=== PATIENT | male | born 1995 | race Caucasian/White ===

== ENCOUNTER 2019-08-10 16:52 | Emergency (ER) | payer OTHER ==
[2019-08-10 17:04] VITALS: BP 137/81; PULSE 68; TEMP 97.1; BMI 26.3
--- NOTE | 2019-08-10 17:05 | PDOC ---
Rapid Medical Evaluation Chief Complaint: Eye Problem Time Seen by Provider: 08/10/19 17:01 Medical Evaluation: Allergies Allergy/AdvReac Type Severity Reaction Status Date / Time No Known Allergies Allergy Verified 08/10/19 17:01 08/10/19 17:03 This patient had brief medical evaluation in triage cc: injury to left eye HPI: Patient reports being hit by a piece of car parts while fixing it. Denies blurred vision or pain. States only feels swelling PE: HEENT: + swelling and bruising of left eye, PERRLA unlabored breathing Orders: facial bones This patient will proceed to main ed for further evaluation Discharge Disposition - Diagnosis Eye injury - Referrals - Patient Instructions - Post Discharge Activity
--- NOTE | 2019-08-10 18:41 | PDOC ---
History of Present Illness - General Chief Complaint: Eye Problem Stated Complaint: EYE INJURY Time Seen by Provider: 08/10/19 17:01 History Source: Patient - History of Present Illness Timing/Duration: other (today) Past History - Past Medical History Allergies/Adverse Reactions: Allergies Allergy/AdvReac Type Severity Reaction Status Date / Time No Known Allergies Allergy Verified 08/10/19 17:01 - Psycho Social/Smoking Cessation Hx Smoking History: Never smoked Information on smoking cessation initiated: No Hx Alcohol Use: No Drug/Substance Use Hx: No Review of Systems - Review of Systems HEENTM: Yes: Eye Pain. No: Blurred Vision, Tearing *Physical Exam - Vital Signs Last Vital Signs Temp Pulse Resp BP Pulse Ox 97.1 F L 68 16 137/81 98 08/10/19 16:59 08/10/19 16:59 08/10/19 16:59 08/10/19 16:59 08/10/19 16:59 - Physical Exam General Appearance: Yes: Appropriately Dressed. No: Apparent Distress HEENT: positive: Normal Voice, Other (L periorbital ecchymosis, no crepitus or step offs, conjunctiva clear, EOMI) Medical Decision Making - Medical Decision Making 08/10/19 18:46 23 yo M, no sig hx, hit face against metal while working under his car at work today. Has pain and swelling to left periorbital area but denies pain inside eye and no photophobia, FB sensation, tearing or visual changes. Denies LOC headache nausea or vomiting see exam L periorbital contusion No e/o serious eye injury Orbital XR neg for fx -Dc to apply ice, OTC meds for pain -To return as needed Discharge - Discharge Information Problems reviewed: Yes Clinical Impression/Diagnosis: Eye injury Qualifiers: Encounter type: initial encounter Laterality: left Qualified Code(s): S05.92XA - Unspecified injury of left eye and orbit, initial encounter Periorbital contusion of left eye Qualifiers: Encounter type: initial encounter Qualified Code(s): S05.12XA - Contusion of eyeball and orbital tissues, left eye, initial encounter Condition: Good Disposition: HOME - Follow up/Referral Referrals: Mark Chavarria MD [Primary Care Provider] - - Patient Discharge Instructions Patient Printed Discharge Instructions: Eye Contusion Additional Instructions: Apply ice frequently and take Motrin for pain Return to ER for worsening of symptoms - Post Discharge Activity
== END 2019-08-10 18:48 | disposition home or self-care (01) ==
LOC: JERFT 16:52 → JER 16:52
DX: S05.12XA Contusion of eyeball and orbital tissues, left eye, initial encounter (principal); W22.8XXA Striking against or struck by other objects, initial encounter; Y93.89 Activity, other specified; Y92.89 Other specified places as the place of occurrence of the external cause; Y99.8 Other external cause status
CPT/HCPCS: 70200-TC-FY; 99283-25

== ENCOUNTER 2020-05-20 19:35 | Emergency (ER) | payer OTHER ==
[2020-05-20 19:53] VITALS: BP 115/63; PULSE 64; TEMP 97; BMI 25.7
== END 2020-05-20 20:47 | disposition home or self-care (01) ==
LOC: JER 19:35 → JERFT 19:35
DX: R07.82 Intercostal pain (principal)
CPT/HCPCS: 71101-TC-RT-FY; 99283-25

== ENCOUNTER 2020-07-09 14:15 | Emergency (ER) | payer OTHER ==
[2020-07-09 15:09] VITALS: BP 124/78; PULSE 74; TEMP 98.1; BMI 28.2
== END 2020-07-09 17:35 | disposition home or self-care (01) ==
LOC: JER 14:15
DX: Z11.52 Encounter for screening for COVID-19 (principal); J06.9 Acute upper respiratory infection, unspecified
CPT/HCPCS: 71046-TC-FY; 87804; 99284-25; C9803; U0003

== ENCOUNTER 2021-09-14 15:20 | Emergency (ER) | payer OTHER ==
[2021-09-14 15:27] VITALS: BP 135/81; PULSE 66; TEMP 98.1; BMI 29.5
[2021-09-14] MEDS ORDERED: DIPHTH,PERTUSS(ACELL),TET 0.5 ML DISP.SYRIN IM ONE ×2 (18:23→18:40)
== END 2021-09-14 17:06 | disposition home or self-care (01) ==
LOC: JERFT 15:20
PROC: 0HQ0XZZ Repair Scalp Skin, External Approach (ICD-10-PCS; principal; 2021-09-14)
PROC: 3E0234Z Introduction of Serum, Toxoid and Vaccine into Muscle, Percutaneous Approach (ICD-10-PCS; 2021-09-14)
DX: S01.81XA Laceration without foreign body of other part of head, initial encounter (principal); W29.8XXA Contact with other powered hand tools and household machinery, initial encounter
CPT/HCPCS: 12001-25; 90471; 90715; 99284-25

== ENCOUNTER 2021-09-21 12:00 | Emergency (ER) | payer OTHER ==
[2021-09-21 12:09] VITALS: BP 109/57; PULSE 67; TEMP 98.1; BMI 27.6
== END 2021-09-21 12:37 | disposition home or self-care (01) ==
LOC: JERFT 12:00
DX: Z48.02 Encounter for removal of sutures (principal)
CPT/HCPCS: 99281-25

== ENCOUNTER 2021-12-21 12:55 | Emergency (ER) | payer OTHER ==
[2021-12-21 13:10] VITALS: BP 118/69; PULSE 80; TEMP 97.9; BMI 28.2
== END 2021-12-21 14:54 | disposition home or self-care (01) ==
LOC: JERFT 12:55
DX: L05.01 Pilonidal cyst with abscess (principal)
CPT/HCPCS: 99283-25

== ENCOUNTER 2021-12-26 14:16 | Emergency (ER) | payer OTHER ==
[2021-12-26 15:12] VITALS: BP 121/75; PULSE 71; TEMP 98.3; BMI 29.5
== END 2021-12-26 16:06 | disposition home or self-care (01) ==
LOC: JERFT 14:16
DX: L02.31 Cutaneous abscess of buttock (principal)
CPT/HCPCS: 99281-25

== ENCOUNTER 2021-12-29 13:27 | Emergency (ER) | payer OTHER ==
[2021-12-29 13:36] VITALS: BP 141/92; PULSE 91; RESP 18; TEMP 98; BMI 29.5
[2021-12-29] MEDS ORDERED: IBUPROFEN 600 MG TABLET (FP) PO ONE ×2 (14:30→14:38)
== END 2021-12-29 15:11 | disposition home or self-care (01) ==
LOC: JERFT 13:27
DX: L05.02 Pilonidal sinus with abscess (principal)
CPT/HCPCS: 87070; 87076; 87077; 87205; 99283-25

== ENCOUNTER 2023-11-28 11:43 | Emergency (ER) | payer OTHER ==
[2023-11-28 11:56] VITALS: BP 117/68; PULSE 58; RESP 18; TEMP 98.1; BMI 28.8
[2023-11-28] MEDS ORDERED: KETOROLAC TROMETHAMINE 15 MG/ML VIAL ONE (12:22)
[2023-11-28] MEDS: KETOROLAC TROMETHAMINE 15 MG/ML VIAL IM ONE (12:28)
== END 2023-11-28 13:22 | disposition home or self-care (01) ==
LOC: JERFT 11:43 → JER 11:43 → JERFT 13:22
PROC: 3E0233Z Introduction of Anti-inflammatory into Muscle, Percutaneous Approach (ICD-10-PCS; principal; 2023-11-28)
DX: R07.82 Intercostal pain (principal); M79.601 Pain in right arm; M54.6 Pain in thoracic spine
CPT/HCPCS: 71046-TC-FY; 73030-TC-RT-FY; 93005; 93010; 99284-25